=== PATIENT | female | born 1980 | race American Indian/Alaskan Native ===

== ENCOUNTER 2021-04-15 10:57 | Outpatient (CLI) | payer OTHER ==
--- NOTE | 2021-04-15 12:21 | Ultrasound Report ---
ULTRASOUND BREAST RIGHT LIMITED, 04/15/2021 CLINICAL INFORMATION / INDICATION: N63.0. Right breast pain. TECHNIQUE: Targeted ultrasound evaluation was performed of the area of interest. COMPARISON: None. FINDINGS: There is no evidence of a cystic or solid mass. No posterior shadowing, distortion or other abnormali ty is seen. IMPRESSION: No sonographic evidence of malignancy. Follow up recommendation: Unless otherwise clinically indicated, recommend patient return to routine screening mammography at age 40. BI-RADS Category 1: NEGATIVE. A normal or "negative" report should not preclude biopsy or follow-up of a clinically suspicious find ing. Signer Name: Jose E Smith MD Signed: 04/15/2021 12:17 PM Workstation Name: [id number]
== END 2021-04-15 10:58 | disposition home or self-care (01) ==
LOC: US 10:57
PROVIDERS: ATTEND Internal Medicine
DX: N63.10 Unspecified lump in the right breast, unspecified quadrant (principal)

== ENCOUNTER 2021-04-26 11:03 | Outpatient (CLI) | payer OTHER ==
--- NOTE | 2021-04-26 11:45 | Mammography Report ---
DIGITAL DIAGNOSTIC MAMMOGRAM WITH CAD CONVENTIONAL, 04/26/2021 CLINICAL INFORMATION / INDICATION: Patient presents for evaluation of an area of palpable concern in the right breast. N63.0 LUMP TECHNIQUE: Digital bilateral mammographic imaging was performed. Spot compression views were obtaine d. This examination was interpreted with the benefit of Computer-aided Detection analysis. COMPARISON: Right breast ultrasound 04/15/2021 FINDINGS: Breast Density: The breasts are heterogeneously dense, which may obscure small masses. No dominant mass, suspicious calcifications or architectural distortion in either breast. There is no mammographic abnormality to correspond with the site of palpable concern in the posterior upper outer quadrant of the right breast. IMPRESSION: 1. There is no mammographic abnormality to account for the area of palpable concern in the right molly st, and recent targeted ultrasound of this area was normal, therefore clinical correlation is recomme nded. Follow up recommendation: Unless otherwise clinically indicated, recommend patient return to routine screening mammography at age 42. BI-RADS Category 1: NEGATIVE. A "normal" or negative report should not discourage follow up or biopsy of a clinically significant f inding. A written summary of these findings will be mailed to the patient. The patient will be entered into a mammography reporting system which will generate a reminder letter for the patient's next appointmen t at the appropriate interval. According to the [employer], yearly mammograms are recommended starting at age 40 and continuing as long as a woman is in good health. Breast MRI is recommended for women with an marry roximately 20-25% or greater lifetime risk of breast cancer, including women with a strong family his tory of breast or ovarian cancer and women who have been treated for Hodgkin's disease. Signer Name: Clara Lombardo MD Signed: 04/26/2021 11:37 AM Workstation Name: [id number]
== END 2021-04-26 11:04 | disposition home or self-care (01) ==
LOC: SPVWC 11:03
PROVIDERS: ATTEND Pediatrics
DX: N63.0 Unspecified lump in unspecified breast (principal); R92.8 Other abnormal and inconclusive findings on diagnostic imaging of breast
CPT/HCPCS: 77066